=== PATIENT | female | born 1945 | race Caucasian/White ===

== ENCOUNTER 2019-01-24 12:56 | Emergency (ER) | payer BC, MEDICARE ==
[2019-01-24 13:16] VITALS: BP 117/72
--- NOTE | 2019-01-24 14:24 | UC ---
Knee Pain HPI - HPI Summary HPI Summary: 3 WEEKS OF PROGRESSIVELY WORSENING LEFT ANTERIOR KNEE PAIN. PATIENT DENIES ANY TRAUMA OR RECENT FALLS. AT BASELINE WALKS WITH A WALKER OR CANE. STATES SHE HAD KNEE INJECTIONS YEARS AGO BY DR. SEE BUT NO SURGERY ON THE KNEE. DAUGHTER REPORTS SHE RECEIVED A CALL AT WORK TODAY STATING THAT HER MOTHER WAS UNABLE TO STAND UP FROM HER CHAIR. DAUGHTER WENT HOME AND FOUND THE PATIENT SITTING IN HER CHAIR IN TEARS DUE TO THE PAIN. GRANDDAUGHTERS KNEE BRACE SOMEWHAT HELPFUL. - History of Current Complaint Chief Complaint: UCLowerExtremity Stated Complaint: KNEE PAIN Time Seen by Provider: 01/24/19 13:55 Hx Obtained From: Patient, Family/Packaging Associate - DAUGHTER, GRANDDAUGHTER Onset/Duration: Gradual Onset, Lasting Weeks, Still Present Severity Initially: Moderate Severity Currently: Moderate Pain Intensity: 7 Pain Scale Used: 0-10 Numeric Character: Sharp Aggravating Factor(s): Movement, Weight Bearing Alleviating Factor(s): Rest, Position Associated Signs And Symptoms: Positive: Negative Able to Bear Weight: No - Allergies/Home Medications Allergies/Adverse Reactions: Allergies Allergy/AdvReac Type Severity Reaction Status Date / Time MS Latex [Latex] Allergy Intermediate Hives Verified 06/09/13 14:05 latex Allergy Rash Verified 01/24/19 13:17 PMH/Surg Hx/FS Hx/Imm Hx Cardiovascular History: Hypertension - Surgical History Surgical History: Yes Surgery Procedure, Year, and Place: C SECTION - Family History Known Family History: Positive: Non-Contributory - Social History Alcohol Use: None Substance Use Type: None Smoking Status (MU): Never Smoked Tobacco - Immunization History Most Recent Influenza Vaccination: 2012 Most Recent Tetanus Shot: unk Most Recent Pneumonia Vaccination: none Review of Systems All Other Systems Reviewed And Are Negative: Yes Constitutional: Positive: Negative Skin: Positive: Negative Respiratory: Positive: Negative Cardiovascular: Positive: Negative Gastrointestinal: Positive: Negative Musculoskeletal: Positive: Arthralgia, Decreased ROM, Myalgia. Negative: Calf Tenderness Physical Exam Triage Information Reviewed: Yes Appearance: Well-Appearing, No Pain Distress, Well-Nourished, Obese Vital Signs: Initial Vital Signs Temp 98 F 01/24/19 13:13 Pulse 58 01/24/19 13:13 Resp 18 01/24/19 13:13 BP 117/72 01/24/19 13:13 Pulse Ox 100 01/24/19 13:13 Vital Signs Reviewed: Yes Eyes: Positive: Conjunctiva Clear ENT: Positive: Hearing grossly normal Neck: Positive: Supple Respiratory: Positive: No respiratory distress, No accessory muscle use Cardiovascular: Positive: Pulses Normal Abdomen Description: Positive: Soft Musculoskeletal: Positive: No Edema, ROM Limited @ - LEFT KNEE, Other: - EXQUISITELY TENDER LEFT ANTERIOR KNEE AND WHOLE LENGTH OF TIBIA. EXTREMELY LIMITED ROM Neurological: Positive: Alert, Muscle Tone Normal Psychological: Positive: Age Appropriate Behavior Skin: Negative: Rashes Diagnostics - Radiology LEFT KNEE XRAYS Radiology Interpretation Completed By: Radiologist Summary of Radiographic Findings: 1. OSTEOPENIA. 2. OSTEOARTHRITIS. 3. PERIPHERAL ARTERIAL DISEASE. 4. NO ACUTE OSSEOUS INJURY LEFT TIB/FIB XRAYS Radiology Interpretation Completed By: Radiologist Summary of Radiographic Findings: 1. OSTEOPENIA. 2. OSTEOARTHRITIS. 3. PERIPHERAL ARTERIAL DISEASE. 4. NO ACUTE OSSEOUS INJURY. Knee Pain Course/Dx - Course Course Of Treatment: DAUGHTER REPORTS ULTRASOUND OF LEG ALREADY ORDERED BY PCP. XRAYS TODAY SHOW NO ACUTE INJURY. KEEP ORTHO APPT SCHEDULED FOR TOMORROW. - Differential Dx/Diagnosis Provider Diagnosis: Pain of left knee and lower leg Discharge ED - Sign-Out/Discharge Documenting (check all that apply): Patient Departure All imaging exams completed and their final reports reviewed: Yes - Discharge Plan Condition: Stable Disposition: HOME Prescriptions: HYDROcodone/ACETAMIN 5-325 MG* [[place] 5-325 TAB*] 1 tab PO Q6H PRN #10 tab MDD 4 PRN Reason: Pain Patient Education Materials: Knee Pain (ED), Leg Pain (ED) Referrals: Franco Raymond MD [Primary Care Provider] - If Needed Sidney See MD [Medical Doctor] - (KEEP APPT TMRW) Additional Instructions: XRAYS TODAY UNREMARKABLE. KEEP YOUR ORTHO APPT TMRW. USE OTC MEDS NEEDED FOR PAIN. HYDROCODONE FOR BREAKTHROUGH. BE AWARE THIS MEDICATION CAN BE SEDATING AND INCREASE YOUR RISK OF FALLS. Leg pain, non-specific: We did not find a specific cause for your leg pain. But there's no sign of a serious problem at this time. Often the cause of the pain becomes obvious with time, or the pain simply goes away. The most common causes of unexplained leg pain are: Muscle irritation. Muscle fatigue, overuse, pressure on the muscle from sitting or lying in one position, or immune reaction to muscle tissue can cause pain. Cholesterol-lowering drugs (statins) can inflame muscles. Dehydration or mineral deficits: Low levels of potassium, salt, calcium, or magnesium can cause cramps or leg muscle pain. Diuretics (water pills) can cause this. Subtle injury. Strains or bruises that were so minor they weren't noticed can cause pain a day or two later. A "stress fracture" of a leg bone can be caused by overuse. "Oscar splints" is pain in the front of the lower leg caused by overuse or hard running. Nerve pain. Leg pain can be caused by disc disease in the back (sciatica or "pinched nerve") or by damage to nerves by diabetes, alcohol abuse, smoking, or vitamin deficiency. A bruise or pressure on a nerve can cause pain. Tendonitis. Inflammation of a tendon can cause leg pain. Sometimes it's not obvious which tendon is responsible. Varicose veins and post-phlebitic syndrome. Abnormal veins sometimes cause widespread leg aching, particularly after being up on your feet all day. Arthritis. Sometimes the pain of an inflamed joint is felt through a wide area. Restless legs. This is an uncomfortable tightness that builds in the legs, making you want to move them. Sometimes it's caused by medication. Blood clots. We found no sign of blood clots during your evaluation today. Clots in tiny veins may cause pain but be non-detectable. Vascular disease. Narrowed arteries can make your muscles run short of oxygen, causing pain with walking. Other serious causes but more rare causes of leg pain include infection, tumors, and bone degeneration. Rest as much as possible. Elevate your leg while resting. Gently stretch your leg muscles four times a day. Use [id number] pain medicine like acetaminophen or ibuprofen. Gentle compression like support hose or elastic bandages might help. Warm up your leg muscles before physical activity. Carefully control any underlying health problems such as diabetes, high blood pressure, heart failure, gout, or arthritis. Eliminate alcohol and tobacco. See the doctor if you have significant changes, such as swelling, redness, fever, increasing pain, numbness, or discoloration. - Billing Disposition and Condition Condition: STABLE Disposition: Home
== END 2019-01-24 15:00 | disposition home or self-care (01) ==
LOC: UCEAST 12:56
DX: M25.562 Pain in left knee (principal); I10 Essential (primary) hypertension; Z91.040 Latex allergy status
CPT/HCPCS: 99212; G0463

== ENCOUNTER 2021-08-10 09:46 | Inpatient (IN) ==
[2021-08-10] MEDS ORDERED: Al Hydrox/Mg Hydrox/Simet LIQ 30 ML UDC PO ONE (10:57)
[2021-08-10 11:01] LABS: ABS Eosinophils 0.1 10^3/ul (0-0.6); ABS Lymphocytes 0.9 10^3/ul (1.0-4.8); ABS Monocytes 0.6 10^3/ul (0-0.8); ABS Neutrophils 9.7 10^3/ul (1.5-7.7); Eosinophil % 1.3 %; Hematocrit 31 % (35-47); Hemoglobin 10.8 g/dL (12.0-16.0); Lymphocyte % 8.2 %; Mean Corpuscular HGB Conc 35 g/dL (31-36); Mean Corpuscular Hemoglobin 30 pg (27-31); Mean Corpuscular Volume 88 fL (80-97); Nucleated Red Blood Cells % 0.1; Platelet Count 443 10^3/uL (150-450); Red Blood Count 3.54 10^6 /uL (3.70-4.87); Red Cell Distribution Width 15 % (10-15); White Blood Count 11.4 10^3/uL (3.5-10.8)
[2021-08-10 11:23] LABS: ALT 78 U/L (7-52); Albumin 3.1 g/dL (3.2-5.2); Alkaline Phosphatase 235 U/L (35-149); Blood Urea Nitrogen 39 mg/dL (6-24); CO2 Carbon Dioxide 23 mmol/L (22-32); Chloride 102 mmol/L (101-111); Glucose 126 mg/dL (70-100); Sodium 134 mmol/L (135-145); Total Protein 6.1 g/dL (6.4-8.9); eGFR CKD-EPI 25.6 (>60)
[2021-08-10 11:29] LABS: Troponin I 0.03 ng/mL (<0.03)
[2021-08-10] MEDS ORDERED: NS 0.9% 1000 ml BAG 1,000 ML IV SCH (11:45)
[2021-08-10 11:51] LABS: Anion Gap 9 mmol/L (2-11)
[2021-08-10 12:14] LABS: Lipase 20 U/L (11.0-82.0)
[2021-08-10 13:16] LABS: Potassium Redraw 3.6 mmol/L (3.5-5.0)
[2021-08-10 13:52] LABS: C Reactive Protein 103.71 mg/L (<8.01)
[2021-08-10 14:50] LABS: Troponin I 0.03 ng/mL (<0.03)
[2021-08-10] MEDS ORDERED: Lisinopril/HCTZ 20/25 TAB (NF) PO SCH (15:00)
[2021-08-10] MEDS ORDERED: Letrozole 2.5 MG TAB (NF) PO SCH ×2 (15:00→23:14)
[2021-08-10 15:17] LABS: TSH Ultra Thyroid Stim Horm 0.48 mcIU/mL (0.34-5.60)
[2021-08-10] MEDS ORDERED: Vancomycin 2,000 MG in NS 0.9% 500 ml BAG 500 ML IVPB ONE (15:30)
[2021-08-10] MEDS: Enoxaparin 40 MG/0.4 ML SYR SUBCUT SCH (15:52)
[2021-08-10] MEDS ORDERED: Cyanocobalamin INJ 1,000 MCG/ML VIAL 1 ML VIAL IM ONE (16:07)
[2021-08-10] MEDS ORDERED: Furosemide 40 mg/4 ml IV VIAL IV ONE (16:12)
[2021-08-10 16:29] LABS: Ferritin 333.7 ng/mL (11-307)
[2021-08-10] MEDS: Clindamycin 600 MG/D5W BAG 600 MG/50 ML BAG IV SCH (18:44)
[2021-08-11] MEDS: Clindamycin 600 MG/D5W BAG 600 MG/50 ML BAG IV SCH ×3 (01:20→16:34)
[2021-08-11] MEDS ORDERED: HYDROcodone/ACETAMIN 5/325 mg TAB PO PRN (06:07)
[2021-08-11 07:34] LABS: Hematocrit 30 % (35-47); Hemoglobin 10.5 g/dL (12.0-16.0); Mean Corpuscular HGB Conc 35 g/dL (31-36); Mean Corpuscular Hemoglobin 31 pg (27-31); Mean Corpuscular Volume 88 fL (80-97); Mean Platelet Volume 7.9 fL (7.4-10.4); Platelet Count 409 10^3/uL (150-450); Red Blood Count 3.43 10^6 /uL (3.70-4.87); Red Cell Distribution Width 15 % (10-15); White Blood Count 9.5 10^3/uL (3.5-10.8)
[2021-08-11 07:52] LABS: Albumin 3.1 g/dL (3.2-5.2); Albumin/Globulin Ratio 1.2 (1-3); Direct Bilirubin 0.1 mg/dL (0.03-0.18); Globulin 2.6 g/dL (2-4); Indirect Bilirubin 0.4 mg/dL (0.3-1.0); Magnesium 1.5 mg/dL (1.9-2.7); Potassium 3.7 mmol/L (3.5-5.0); Total Bilirubin 0.5 mg/dL (0.2-1.0); Total Protein 5.7 g/dL (6.4-8.9); eGFR CKD-EPI 29.2 (>60)
[2021-08-11] MEDS ORDERED: Magnesium Sulfate 2 gm BAG 2 GM/50 ML BAG IVPB ONE (08:29)
[2021-08-11] MEDS: CMC:Letrozole 2.5 MG TAB (NF) PO SCH (08:33)
[2021-08-11] MEDS: Enoxaparin 40 MG/0.4 ML SYR SUBCUT SCH (16:35)
[2021-08-11] MEDS ORDERED: Enoxaparin 80 MG/0.8 ML SYR SUBCUT ONE (22:08)
[2021-08-12] MEDS: Clindamycin 600 MG/D5W BAG 600 MG/50 ML BAG IV SCH ×3 (00:03→17:24)
[2021-08-12 05:46] LABS: ABS Basophils 0.1 10^3/ul (0-0.2); ABS Eosinophils 0.4 10^3/ul (0-0.6); ABS Lymphocytes 1.5 10^3/ul (1.0-4.8); ABS Monocytes 0.6 10^3/ul (0-0.8); ABS Neutrophils 6.3 10^3/ul (1.5-7.7); Eosinophil % 4.1 %; Hematocrit 29 % (35-47); Lymphocyte % 16.5 %; Mean Corpuscular HGB Conc 34 g/dL (31-36); Mean Corpuscular Hemoglobin 30 pg (27-31); Mean Corpuscular Volume 87 fL (80-97); Mean Platelet Volume 7.3 fL (7.4-10.4); Nucleated Red Blood Cells % 0.1; Platelet Count 407 10^3/uL (150-450); Red Blood Count 3.35 10^6 /uL (3.70-4.87); Red Cell Distribution Width 15 % (10-15); White Blood Count 8.8 10^3/uL (3.5-10.8)
[2021-08-12 06:21] LABS: Calcium 9.6 mg/dL (8.6-10.3); Potassium 3.5 mmol/L (3.5-5.0); eGFR CKD-EPI 30.2 (>60)
[2021-08-12] MEDS ORDERED: Potassium Chlor 20 meq TAB.ER PO ONE (06:47)
[2021-08-12] MEDS: CMC:Letrozole 2.5 MG TAB (NF) PO SCH (09:24)
[2021-08-12] MEDS ORDERED: Perflutren Lipid Microsphere 3 ML VIAL ONE (09:47)
[2021-08-12 13:25] LABS: C Reactive Protein 49.43 mg/L (<8.01)
[2021-08-13] MEDS: Clindamycin 600 MG/D5W BAG 600 MG/50 ML BAG IV SCH ×2 (00:32→08:32)
[2021-08-13 05:54] LABS: ABS Basophils 0.1 10^3/ul (0-0.2); ABS Eosinophils 0.2 10^3/ul (0-0.6); ABS Lymphocytes 1.2 10^3/ul (1.0-4.8); ABS Monocytes 0.6 10^3/ul (0-0.8); ABS Neutrophils 6.3 10^3/ul (1.5-7.7); Eosinophil % 2.9 %; Hematocrit 29 % (35-47); Lymphocyte % 14.7 %; Mean Corpuscular HGB Conc 34 g/dL (31-36); Mean Corpuscular Hemoglobin 31 pg (27-31); Mean Corpuscular Volume 89 fL (80-97); Mean Platelet Volume 7.5 fL (7.4-10.4); Platelet Count 391 10^3/uL (150-450); Red Blood Count 3.28 10^6 /uL (3.70-4.87); Red Cell Distribution Width 15 % (10-15); White Blood Count 8.4 10^3/uL (3.5-10.8)
[2021-08-13 06:13] LABS: Calcium 9.5 mg/dL (8.6-10.3); Potassium 3.9 mmol/L (3.5-5.0); eGFR CKD-EPI 24.7 (>60)
[2021-08-13 08:02] LABS: Albumin 2.8 g/dL (3.2-5.2); Albumin/Globulin Ratio 1.1 (1-3); Globulin 2.5 g/dL (2-4); Total Bilirubin 0.4 mg/dL (0.2-1.0); Total Protein 5.3 g/dL (6.4-8.9)
[2021-08-13] MEDS: CMC:Letrozole 2.5 MG TAB (NF) PO SCH (08:38)
[2021-08-13 15:42] VITALS: BP 112/60
== END 2021-08-13 17:00 | disposition home or self-care (01) | DRG 720 ==
LOC: ED 09:46 → SUATTDRO 14:50 → EDHOLD 14:50 → MEDTELE 19:37
PROVIDERS: ADMIT Student in an Organized Health Care Education/Training Program; ATTEND Family Medicine